=== PATIENT | female | born 1995 | race Caucasian/White ===

== ENCOUNTER 2019-01-04 01:31 | Emergency (ER) | payer OTHER ==
--- NOTE | 2019-01-04 02:07 | PDOC ---
History of Present Illness - General Stated Complaint: ABD/BACK PAIN Time Seen by Provider: 01/04/19 02:06 - History of Present Illness Initial Comments: 01/04/19 02:29 Ms. Hurt is a 23 yo female w/ pmh of IBS and depression who presents for evaluation of 2-3 day history of antony back pain that radiates to her abdomen. Patient reports it has been intermittent and similar to an episode 5 years ago when she was initially diagnosed with her IBS. The patient denies chest pain, shortness of breath, headache and dizziness. Denies fever, chills, nausea, vomit, diarrhea and constipation. Denies dysuria, frequency, urgency and hematuria. Past History - Past Medical History Allergies/Adverse Reactions: Allergies Allergy/AdvReac Type Severity Reaction Status Date / Time No Known Allergies Allergy Verified 01/04/19 02:15 Home Medications: Ambulatory Orders Ibuprofen [Motrin -] 400 mg PO QID PRN 12/07/13 Naproxen [Naprosyn -] 500 mg PO BID PRN #10 tablet 12/08/13 Nitrofurantoin Macrocrystal [Nitrofurantoin] 100 mg PO BID #5 capsule 12/08/13 HTN: Yes Psychiatric Problems: Yes (ANXIETY) - Surgical History Appendectomy: Yes - Immunization History Immunization Up to Date: Yes - Suicide/Smoking/Psychosocial Hx Smoking History: Never smoked Have you smoked in the past 12 months: No Hx Alcohol Use: No Review of Systems - Review of Systems Comments:: 01/04/19 02:33 GENERAL/CONSTITUTIONAL: No fever or chills. No weakness. HEAD, EYES, EARS, NOSE AND THROAT: No change in vision. No ear pain or discharge. No sore throat. CARDIOVASCULAR: No chest pain or shortness of breath RESPIRATORY: No cough, wheezing, or hemoptysis. GASTROINTESTINAL: +Abdominal / back pain as described. No nausea, vomiting, diarrhea or constipation. GENITOURINARY: No dysuria, frequency, or change in urination. MUSCULOSKELETAL: No joint or muscle swelling or pain. No neck pain. SKIN: No rash NEUROLOGIC: No headache, vertigo, loss of consciousness, or change in strength/ sensation. ENDOCRINE: No increased thirst. No abnormal weight change HEMATOLOGIC/LYMPHATIC: No anemia, easy bleeding, or history of blood clots. ALLERGIC/IMMUNOLOGIC: No hives or skin allergy. *Physical Exam - Physical Exam Comments: 01/04/19 02:34 GENERAL: Awake, alert, and fully oriented, in no acute distress HEAD: No signs of trauma, normocephalic, atraumatic EYES: PERRLA, EOMI, sclera anicteric, conjunctiva clear ENT: Auricles normal inspection, hearing grossly normal, nares patent, oropharynx clear without exudates. Moist mucosa NECK: Normal ROM, supple, no lymphadenopathy, JVD, or masses LUNGS: No distress, speaks full sentences, clear to auscultation bilaterally HEART: Regular rate and rhythm, normal S1 and S2, no murmurs, rubs or gallops, peripheral pulses normal and equal bilaterally. ABDOMEN: +Non-specific mild abdominal TTP. Soft, normoactive bowel sounds. No guarding, no rebound. No masses EXTREMITIES: Normal inspection, Normal range of motion, no edema. No clubbing or cyanosis. NEUROLOGICAL: Cranial nerves II through XII grossly intact. Normal speech, normal gait, no focal sensorimotor deficits SKIN: Warm, Dry, normal turgor, no rashes or lesions noted. ED Treatment Course - LABORATORY CBC & Chemistry Diagram: 01/04/19 02:30 01/04/19 02:24 Medical Decision Making - Medical Decision Making 01/04/19 05:54 Ms. Hurt is a 23 yo female w/ pmh as described who presents for evaluation of non-specific abdominal/back pain. Patient evaluated with labs as below for r/ o UTI, infection, or other urological process. Bedside US also performed which revealed normal kidneys, bladder, and gall bladder w/out stones. Patient reports she has had appendix out on repeat examination as well. 01/04/19 06:34 Labs grossly wnl as below. Patient treated symptomatically w/ pepcid, maalox, and viscous lidocaine. No concern for acute process at this time. Discharging to home. Laboratory Results - last 24 hr 01/04/19 01/04/19 01/04/19 02:24 02:30 02:34 WBC 10.1 H RBC 4.66 Hgb 13.8 Hct 41.0 MCV 88.1 MCH 29.6 MCHC 33.6 RDW 15.0 Plt Count 256 MPV 9.2 Absolute Neuts (auto) 7.4 Neutrophils % 74.0 Lymphocytes % 18.6 Monocytes % 6.5 Eosinophils % 0.3 Basophils % 0.6 Nucleated RBC % 0 Sodium 139 Potassium 4.2 Chloride 104 Carbon Dioxide 26 Anion Gap 9 BUN 16 Creatinine 0.8 Creat Clearance w eGFR 87.40 Random Glucose 88 Calcium 8.6 Total Bilirubin 0.4 AST 18 ALT 17 Alkaline Phosphatase 61 Total Protein 8.1 Albumin 4.5 Lipase 165 Urine Color Yellow Urine Appearance Clear Urine pH 5.0 Ur Specific Atkinson 1.011 Urine Protein Negative Urine Glucose (UA) Negative Urine Ketones Negative Urine Blood Trace Urine Nitrite Negative Urine Bilirubin Negative Urine Urobilinogen 0.2 Ur Leukocyte Esterase Trace Urine WBC (Auto) 2 Urine RBC (Auto) 3 Urine Casts (Auto) 1 U Epithel Cells (Auto) 3.0 Urine Bacteria (Auto) 57.9 Urine HCG, Qual Negative 01/04/19 05:51 WBC RBC Hgb Hct MCV MCH MCHC RDW Plt Count MPV Absolute Neuts (auto) Neutrophils % Lymphocytes % Monocytes % Eosinophils % Basophils % Nucleated RBC % Sodium Potassium Chloride Carbon Dioxide Anion Gap BUN Creatinine Creat Clearance w eGFR Random Glucose Calcium Total Bilirubin AST ALT Alkaline Phosphatase Total Protein Albumin Lipase Cancelled Urine Color Urine Appearance Urine pH Ur Specific Atkinson Urine Protein Urine Glucose (UA) Urine Ketones Urine Blood Urine Nitrite Urine Bilirubin Urine Urobilinogen Ur Leukocyte Esterase Urine WBC (Auto) Urine RBC (Auto) Urine Casts (Auto) U Epithel Cells (Auto) Urine Bacteria (Auto) Urine HCG, Qual *DC/Admit/Observation/Transfer Diagnosis at time of Disposition: Abdominal pain Qualifiers: Abdominal location: unspecified location Qualified Code(s): R10.9 - Unspecified abdominal pain - Discharge Dispostion Disposition: HOME Condition at time of disposition: Fair - Referrals Referrals: Rowdy Aquino MD [Staff Physician] - - Patient Instructions Printed Discharge Instructions: DI for Abdominal Pain-Adult Additional Instructions: You were evaluated today in the ER for your abdominal pain. We performed evaluation of blood and urine labs as well as examined you with ultrasound. No emergent process was identified at this time and you should follow-up with your orthopedics pediatric physician later this week for further evaluation. You may take over the counter tylenol per package instructions for pain control. Return to ER if any fever, chills, increase in pain, or other concerning symptoms. - Post Discharge Activity
[2019-01-04 02:15] VITALS: TEMP 97.9; BMI 21.7
[2019-01-04 02:40] LABS: BASO % 0.6 % (0-2.0); EOS % 0.3 % (0-4.5); HEMOGLOBIN 13.8 GM/dL (10.7-15.3); LYMPH % 18.6 % (8-40); MCH 29.6 pg (25.7-33.7); MCHC 33.6 g/dl (32.0-36.0); MEAN CELL VOLUME 88.1 fl (80-96); MEAN PLT VOLUME 9.2 fl (7.5-11.1); MONO % 6.5 % (3.8-10.2); PLATELET COUNT 256 K/MM3 (134-434); RBC 4.66 M/mm3 (3.60-5.2); WHITE BLOOD COUNT 10.1 K/mm3 (4.0-10.0)
[2019-01-04 02:47] LABS: HCG,QUALITATIVE URINE Negative
[2019-01-04 03:13] LABS: ALBUMIN 4.5 g/dl (3.4-5.0); ALK PHOS 61 U/L (45-117); ANION GAP 9 MMOL/L (8-16); BILIRUBIN,TOTAL 0.4 mg/dL (0.2-1); BLOOD UREA NITROGEN 16 mg/dL (7-18); CALCIUM 8.6 mg/dL (8.5-10.1); CHLORIDE 104 mmol/L (98-107); CO2 26 mmol/L (21-32); CREATININE 0.8 mg/dL (0.55-1.3); GLUCOSE,RANDOM 88 mg/dL (74-106); POTASSIUM 4.2 mmol/L (3.5-5.1); SGOT/AST 18 U/L (15-37); SGPT/ALT 17 U/L (13-61); SODIUM 139 mmol/L (136-145); TOT PROT 8.1 g/dl (6.4-8.2)
[2019-01-04 03:45] LABS: URINE APPEARANCE CLEAR; URINE BACTERIA 57.9 /hpf (NEGATIVE); URINE BILIRUBIN NEGATIVE (NEGATIVE); URINE CASTS 1 /hpf (0-8); URINE COLOR YELLOW; URINE GLUCOSE (UA) NEGATIVE (NEGATIVE); URINE KETONE NEGATIVE (NEGATIVE); URINE LEUK ESTERASE TRACE (NEGATIVE); URINE NITRITE NEGATIVE (NEGATIVE); URINE PROTEIN NEGATIVE (NEGATIVE); URINE RBC 3 /hpf (0-4); URINE UROBILINOGEN 0.2 mg/dL (0.2-1.0); URINE WBC 2 /hpf (0-5)
[2019-01-04] MEDS ORDERED: MAG HYDROX/AL HYDROX/SIMETH 30 ML UNIT-DOSE CUP PO ONE (05:24)
[2019-01-04] MEDS ORDERED: LIDOCAINE VISCOUS 2% ORAL/TOP 20 ML UNIT-DOSE CUP MM ONE (05:24)
[2019-01-04] MEDS ORDERED: FAMOTIDINE 20 MG/50 ML IVPB 20 MG/50 ML MG IVPB ONE ×2 (05:24→05:36)
[2019-01-04] MEDS ORDERED: MAG HYDROX/AL HYDROX/SIMETH 30 ML UNIT-DOSE CUP ONE (05:36)
[2019-01-04] MEDS ORDERED: LIDOCAINE VISCOUS 2% ORAL/TOP 20 ML UNIT-DOSE CUP ONE (05:36)
--- NOTE | 2019-01-04 05:38 | PDOC ---
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 pt states she can feel peristalsis in her stomach, h/o irritable bowel. has seen gi dr hsieh in the past many years ago. no n/v. normally 2 - 3 bm / day. no f/c no urinary complaints. no h/o ovarian cyst. no lower abd pain. describes bilat flank pain radiating to front. does have h/o inflammatory bowel disease in her family, but pt denies diarrhea or bloody bm. - Physicial Exam PE: 01/04/19 05:35 awake alert lungs clear bilaterally heart rrr no mrg abd soft mild periumbilical ttp. no rebound no guarding. mild epigastric ttp. skin warm and dry. no cva tenderness. - Medical Decision Making 01/04/19 05:36 pt ho prior appendectomy with vague abd / flank pain. mild periumbilical tenderness. no guarding. differental renal colic, uti, no lower abd tenderness to suggest ovarian pathology. no diarrhea to suggest colitis. cholelithiasis gastritis pud, irritable bowel. plan ua ucg lipase cbc cmp . focused ED ultrasound renal bilateral kidneys scanned. no hydroneprhosis. bladder nondistended. impression: normal renal ultrasound. focused ED US RUQ. gallbladder scanned in two planes. no wall thickening no wall edema. no cbd dilation, no stones. no pericholecystic fluid, no sonographic mcknight's. impression: normal gallbladder. d/w pt risk and benefit of ct a/p. relatively nontendern exam. normal renal and gb us. labs unremarkable. plan gi cocktail, recommend fu with ouptt GI dr Ibarra.
[2019-01-04 06:30] LABS: LIPASE 165 U/L (73-393)
[2019-01-04 06:45] VITALS: BP 103/61; PULSE 71
== END 2019-01-04 06:45 | disposition home or self-care (01) ==
LOC: JER 01:31
PROC: 3E033GC Introduction of Other Therapeutic Substance into Peripheral Vein, Percutaneous Approach (ICD-10-PCS; principal; 2019-01-04)
DX: R10.9 Unspecified abdominal pain (principal); K58.9 Irritable bowel syndrome, unspecified; F32.9 Major depressive disorder, single episode, unspecified; I10 Essential (primary) hypertension; F41.9 Anxiety disorder, unspecified
CPT/HCPCS: 36415; 80053; 81003; 83690; 84703; 85025; 87086; 99283-25

== ENCOUNTER 2019-01-09 22:53 | Emergency (ER) | payer OTHER ==
[2019-01-09 22:59] VITALS: BMI 22.1
[2019-01-09] MEDS ORDERED: ACETAMINOPHEN 325 MG TABLET (FP) PO ONE (23:40)
[2019-01-09] MEDS ORDERED: KETOROLAC TROMETHAMINE 15 MG/ML VIAL IVPUSH ONE (23:40)
[2019-01-09] MEDS ORDERED: ACETAMINOPHEN 325 MG TABLET (FP) ONE (23:46)
[2019-01-09] MEDS ORDERED: KETOROLAC TROMETHAMINE 15 MG/ML VIAL ONE (23:46)
--- NOTE | 2019-01-10 00:15 | PDOC ---
Documentation entered by Kiana Mccullough SCRIBE, acting as scribe for Gifty Breen MD. History of Present Illness - General Chief Complaint: Pain Stated Complaint: LOWER BACK PAIN Time Seen by Provider: 01/09/19 23:18 History Source: Patient Exam Limitations: No Limitations - History of Present Illness Initial Comments: 01/10/19 00:08 HPI: 23YOF with significant past medical history of IBS, anxiety, and depression presenting with 1 week of constant, 8/10, blt lower back pain radiating to her anterior abdomen and rectum. She notes her symptoms onset after a pathophysiology [place] the train. Patient endorses increased anxiety attacks secondary to her symptoms and the unknown of what it could be due to her new knowledge. While in the ED, patient requests a CT scan to help treat her anxiety. denies trauma or exertional activity. she uses clonazepam as needed per her psychiatrist, who she has upcoming appt with; she used her clonazepam last week with some relief. she denies using any otc analgesics for pain control. LMP 2 weeks ago, usually regular. no sexually activity, no VB or abnormal discharge. she was seen in the ED on 01/04/19 for similar sx, had normal blood work and bedside ultrasound imaging neg for renal or biliary pathology. she was referred to see GI As outpatient, but has yet to see or make appt. Denies any worsening or alleviating factors. Denies fever, chills, chest pain, SOB, palpitation, dizziness, weakness, N, V, D, abdominal pain, bladder and bowel problems, leg swelling, No sick contacts or travel. No new changes in medications. Allergies: None Past Medical History: IBS, anxiety, depression. Social history: goes to school, premed. No tobacco, ETOH or drug use. Surgical history: Appendectomy. Adenoidectomy. Meds: as documented in EMR PMD: None. ROS: GENERAL/CONSTITUTIONAL: No fever or chills. No weakness. no sweats. HEAD, EYES, EARS, NOSE AND THROAT: No change in vision or hearing. No ear pain or discharge. No sore throat or mouth pain. No difficulty swallowing. No congestion. CARDIOVASCULAR: No chest pain or palpitations, syncope or edema. RESPIRATORY: No SOB, cough GASTROINTESTINAL No nausea/vomiting. No diarrhea or constipation. +abdominal pain GENITOURINARY: +Abdominal pain. No hematuria, dysuria, frequency, urgency or other changes. MUSCULOSKELETAL: No joint or muscle swelling or pain. No decreased range of motion. +Back pain. No neck pain. SKIN: No rash or changes in skin color or lesions. No wounds. NEUROLOGIC: alert and oriented appropriately No headache, dizziness, loss of consciousness, or change in strength/sensation. HEMATOLOGIC/LYMPHATIC: No anemia, easy bruising/bleeding, or history of blood clots. No swollen lymph nodes ALLERGIC/IMMUNOLOGIC: No allergies PSYCH: +Anxiety. All other systems reviewed and negative, or as documented in HPI. Physical Exam: General: +Mildly anxious. Well appearing, awake and alert, NAD. HEENT: NCAT, PERRL, EOMI, clear conjunctiva, anicteric, moist mucus membranes, clear oropharynx, no oral lesions.. Neck: neck supple, FROM Resp: CTAB, normal and even respirations, no respiratory distress CVS: RRR, no murmurs, 2+ peripheral pulses throughout, no peripheral edema Abdomen: soft, NTND, no rebound or guarding. No CVAT. Back: nontender, normal inspection and ROM MSK: no edema, PADILLA x4, ROM intact. No clubbing or cyanosis. normal bulk and tone. Neuro: alert Skin: warm and well perfused, cap refill <2 sec, normal color Psych: mildly anxious, no tremors. 01/10/19 00:16 Past History - Past Medical History Allergies/Adverse Reactions: Allergies Allergy/AdvReac Type Severity Reaction Status Date / Time No Known Allergies Allergy Verified 01/09/19 23:00 Home Medications: Ambulatory Orders Ibuprofen [Motrin -] 400 mg PO QID PRN 12/07/13 Naproxen [Naprosyn -] 500 mg PO BID PRN #10 tablet 12/08/13 Nitrofurantoin Macrocrystal [Nitrofurantoin] 100 mg PO BID #5 capsule 12/08/13 Cephalexin Monohydrate [Keflex -] 500 mg PO BID #14 capsule 01/10/19 COPD: No HTN: Yes Psychiatric Problems: Yes (ANXIETY) - Surgical History Appendectomy: Yes - Immunization History Immunization Up to Date: Yes - Suicide/Smoking/Psychosocial Hx Smoking History: Never smoked Have you smoked in the past 12 months: No Hx Alcohol Use: No Drug/Substance Use Hx: No *Physical Exam - Vital Signs Last Vital Signs Temp Pulse Resp BP Pulse Ox 97.4 F L 94 H 18 158/109 H 98 01/09/19 22:57 01/09/19 22:57 01/09/19 22:57 01/09/19 22:57 01/09/19 22:57 ED Treatment Course - LABORATORY CBC & Chemistry Diagram: 01/10/19 00:24 01/10/19 00:24 - RADIOLOGY Radiology Studies Ordered: Category Date Time Status ABDOMEN US -LIMITED [US] Stat Ultrasound 01/09/19 23:39 Ordered PELVIC / BLADDER US [US] Stat Ultrasound 01/09/19 23:40 Ordered Radiograph Interpretation: 01/10/19 01:11 EXAM: PELVIC / BLADDER US and pelvic duplex HISTORY: Pelvic pain COMPARISON: None. FINDINGS: Pelvic ultrasound:Uterus is anteverted and measures 7.3centimeters in length. The endometrium is 7millimeters in thickness which is normal. There are no fibroids. The right ovary measures 3.6centimeters in length, appears normal and demonstrates normal flow. Left ovary is not visualized. There is no significant free fluid. Bladder is collapsed. Pelvic duplex: There is normal arterial and venous flow in the right ovary. IMPRESSION: No evidence of pathology, although the left ovary is not visualized. EXAM: Ultrasound abdomen complete and limited abdominal duplex HISTORY: Evaluate for biliary or renal stone COMPARISON: None. FINDINGS: Ultrasound abdomen: The liver is normal, without mass or intrahepatic biliary duct dilation. The gallbladder contains a polyp and sludge without secondary findings of cholecystitis. The CBD is nondilated and measures 3millimeters in diameter. The right kidney measures 9.3centimeters in diameter. The left kidney measures 9.7centimeters in diameter. There are no renal stones or hydronephrosis. Pancreas is partially obscured by bowel gas, but grossly unremarkable. The spleen measures 10.4 centimeters in length and is unremarkable. Aorta and IVC appear normal. Abdominal duplex: The main portal vein demonstrates normal hepatopedal flow. IMPRESSION: Gallbladder polyp and sludge without secondary findings of cholecystitis. Read by: Trent Brandon MD - Medications Given in the ED: ED Medications Discontinued Medications Generic Name Dose Route Start Last Admin Trade Name Freq PRN Reason Stop Dose Admin Acetaminophen 650 mg 01/09/19 23:40 01/09/19 23:55 Tylenol - PO 01/09/19 23:41 650 mg ONCE ONE Administration Ketorolac Tromethamine 15 mg 01/09/19 23:40 01/09/19 23:54 Toradol Injection - IVPUSH 01/09/19 23:41 15 mg ONCE ONE Administration Medical Decision Making - Medical Decision Making 01/09/19 23:59 I, Gifty Breen MD, attest that this document has been prepared under my direction and personally reviewed by me in its entirety. I further attest, that it accurately reflects all work, treatment, procedures and medical decision -making performed by me. See HPI for details Vital signs reviewed, wnl. mildly hypertensive, but also anxious. no fever or systemic sx DDx abdominal pain: Renal colic, biliary colic, metabolic/electrolyte derangements. GERD, PUD, esophageal spasm, pancreatitis, hepatitis, constipation , colitis, gastroenteritis, UTI, pyelonephritis, hernia, ovarian cyst, Mittelschmerz; lumbar strain, msk strain. - s/p appendectomy. no palp hernia. abdomen benign. Prior notes reviewed, including admissions, discharges and consultations. recent ED visit on 01/04/19 for similar sx, neg workup and labs, neg bedside ultrasound imaging, no stones or biliary pathology, no hydro to suggest stone/ renal pathology. laboratory results and imaging reviewed, basic labs and lytes wnl, notable for_ . UA_with some leuk esterase, WBC 11, correlating with symptomatic UTI (lower abdominal/back pain). no s/s suggestive of acute pyelo. preg test neg ED course - pt is anxious, has 1 week of sx, doubt intra abdominal pathology - also no significant abdominal or pelvic pain, no peritoneal or focal tenderness. pt requesting CT a/p, stating she is anxious and wants a good test. discussed indications, risks and benefits including radiation and malignancy and nephrotox risk, pt is amenable to ultrasound and labs to start, analgesia and reassess. - Abdomen/pelvic US: biliary sludge and polyp, no cholecystitis. no hydro, normal renal morphology. no acute pelvic pathology, no FF. normal uterus, no structural abnormalities. - UA with s/s uncomplicated UTI, treat with keflex x 7 days, f/u urine culture. - on reeval, VS normalized. after analgesia, sx improved. abdomen benign. provided and discussed imaging and lab results. f/u primary, GI and psych. Dispo: Pt informed of my clinical impression, treatment recommendations and disposition plan. All questions answered to patient's satisfaction and expressed understanding and comfort with this. Reasons for returning to the ED sooner discussed including new or persistent/worsening symptoms with the patient otherwise, follow up with primary care physician. At the time of discharge, the patient is alert, clinically improved, tolerating po and verbalizes understanding of instructions, satisfied with the care received and felt comfortable with the plan. Patient does not suffer from an acute life- threatening medical condition at this time she is safe for outpatient follow- up. 01/10/19 01:10 01/10/19 01:11 01/10/19 01:15 01/10/19 01:42 *DC/Admit/Observation/Transfer Diagnosis at time of Disposition: Back pain Qualifiers: Back pain location: low back pain Back pain laterality: unspecified Sciatica presence: without sciatica Abdominal pain Qualifiers: Abdominal location: lower abdomen, unspecified Qualified Code(s): R10.30 - Lower abdominal pain, unspecified Urinary tract infection Qualifiers: Urinary tract infection type: acute cystitis Hematuria presence: with hematuria Qualified Code(s): N30.01 - Acute cystitis with hematuria - Discharge Dispostion Disposition: HOME Condition at time of disposition: Improved Decision to Admit order: No - Prescriptions Prescriptions: Cephalexin Monohydrate [Keflex -] 500 mg PO BID #14 capsule - Referrals Referrals: Rowdy Aquino MD [Staff Physician] - [facility] [Provider Group] [facility] [Provider Group] - Patient Instructions Printed Discharge Instructions: DI for Low Back Pain, DI for Abdominal Pain- Adult Additional Instructions: 1) Please follow-up with your primary care doctor in the next 1-2 days. Please call tomorrow for for any urgent issues. 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 reduce stressors and take pain medications as needed for your pain, as well as clonazepam as needed for anxiety 2) You were given a copy of the tests performed today. Please bring the results with you and review them with your primary care doctor. Your laboratory / imaging results were normal, including your ultrasounds. - you have some sludge and incidental gallbladder polyp, no evidence of infection or obstruction. - pelvic ultrasound also unremarkable, no cyst or structural abnormalities. 3) If you have any worsening of symptoms or any other concerns please return to the ED immediately. Return if worsening symptoms including fevers, headache, vomiting, visual or hearing disturbances, abdominal pain, chest pain, shortness of breath, syncope, dehydration, inability to take things by mouth/vomiting, altered mental status, or worsening concerning symptoms. 4) Please continue taking your home medications as directed. you are to take keflex twice a day x 1 week for your urinary tract infection, follow up on your urine cultures. this is an antibiotic to treat the urinary tract infection. side effects may include upset stomach, abdominal pain, vomiting, or diarrhea. do not drink alcohol with your medications. Please take IBUPROFEN (aka MOTRIN, ADVIL, ALEVE) 400 mg and/or ACETAMINOPHEN ( aka Tylenol) 650-975 mg every 6 hours, as needed, for pain. Please do not take these medications if you have a bleeding disorder, stomach or GI ulcer problems or liver disease. Stay well hydrated and rest adequately. an appointment. If you cannot follow-up with your primary care doctor please return to the ED - Post Discharge Activity Gifty Breen MD: This documentation has been prepared by the Sadia hernández Nirvannie, SCRIBE, under my direction and personally reviewed by me in its entirety. I confirm that the documentation accurately reflects all work, treatment, procedures, and medical decision making performed by me.
[2019-01-10 00:37] LABS: BASO % 0.7 % (0-2.0); EOS % 0.3 % (0-4.5); HEMATOCRIT 40.6 % (32.4-45.2); HEMOGLOBIN 13.5 GM/dL (10.7-15.3); LYMPH % 16.6 % (8-40); MCH 29.7 pg (25.7-33.7); MCHC 33.4 g/dl (32.0-36.0); MEAN PLT VOLUME 9.4 fl (7.5-11.1); MONO % 6.1 % (3.8-10.2); NEUT % 76.3 % (42.8-82.8); PLATELET COUNT 276 K/MM3 (134-434); RBC 4.56 M/mm3 (3.60-5.2); WHITE BLOOD COUNT 9.6 K/mm3 (4.0-10.0)
[2019-01-10 01:03] LABS: ALBUMIN 4.6 g/dl (3.4-5.0); ALK PHOS 56 U/L (45-117); ANION GAP 9 MMOL/L (8-16); BILIRUBIN,TOTAL 0.6 mg/dL (0.2-1); BLOOD UREA NITROGEN 12 mg/dL (7-18); CALCIUM 9.8 mg/dL (8.5-10.1); CHLORIDE 100 mmol/L (98-107); CO2 28 mmol/L (21-32); CREATININE 0.7 mg/dL (0.55-1.3); GLUCOSE,RANDOM 102 mg/dL (74-106); LIPASE 124 U/L (73-393); POTASSIUM 3.8 mmol/L (3.5-5.1); SGOT/AST 16 U/L (15-37); SGPT/ALT 19 U/L (13-61); SODIUM 137 mmol/L (136-145); TOT PROT 8.1 g/dl (6.4-8.2)
[2019-01-10 01:25] LABS: EPI CELLS 6.4 /HPF (0-5/HPF); PH,URINE 5.5 (5.0-8.0); URINE APPEARANCE CLEAR; URINE BACTERIA 124.5 /hpf (NEGATIVE); URINE BILIRUBIN NEGATIVE (NEGATIVE); URINE CASTS 3 /lpf (0-8); URINE COLOR YELLOW; URINE GLUCOSE (UA) NEGATIVE (NEGATIVE); URINE KETONE TRACE (NEGATIVE); URINE LEUK ESTERASE 1+ (NEGATIVE); URINE NITRITE NEGATIVE (NEGATIVE); URINE PROTEIN NEGATIVE (NEGATIVE); URINE RBC 5 /hpf (0-4); URINE UROBILINOGEN 0.2 mg/dL (0.2-1.0); URINE WBC 11 /hpf (0-5)
[2019-01-10] MEDS ORDERED: CEPHALEXIN MONOHYDRATE 500 MG CAPSULE (UD) PO ONE (01:42)
[2019-01-10] MEDS ORDERED: CEPHALEXIN MONOHYDRATE 500 MG CAPSULE (UD) ONE (01:48)
[2019-01-10 03:10] LABS: HCG,QUALITATIVE URINE NEGATIVE
[2019-01-10 07:25] VITALS: BP 120/75; PULSE 70; TEMP 98.2
== END 2019-01-10 02:11 | disposition home or self-care (01) ==
LOC: JER 22:53
PROC: 3E0333Z Introduction of Anti-inflammatory into Peripheral Vein, Percutaneous Approach (ICD-10-PCS; principal; 2019-01-09)
DX: I10 Essential (primary) hypertension (principal); F41.8 Other specified anxiety disorders; F32.9 Major depressive disorder, single episode, unspecified
CPT/HCPCS: 36415; 76700-TC; 76856-TC; 80053; 81003; 83690; 84703; 85025; 87086; 96374; 99282-25

== ENCOUNTER 2024-01-23 17:20 | Emergency (ER) | payer OTHER ==
[2024-01-23 17:31] VITALS: BP 126/76; PULSE 73; RESP 18; TEMP 98; BMI 28.4
[2024-01-23 18:41] LABS: BASO % 0.9 % (0-2.0); EOS % 1.1 % (0-4.5); HEMATOCRIT 41.9 % (32.4-45.2); HEMOGLOBIN 13.7 GM/dL (10.7-15.3); LYMPH % 29.2 % (8-40); MCH 28.8 pg (25.7-33.7); MCHC 32.7 g/dl (32.0-36.0); MEAN CELL VOLUME 88.3 fl (80-96); MONO % 6.3 % (3.8-10.2); NEUT % 62.5 % (42.8-82.8); PLATELET COUNT 328 10^3/uL (134-434); RBC 4.75 M/mm3 (3.60-5.2); RDW 14.3 % (11.6-15.6); WHITE BLOOD COUNT 7.9 K/mm3 (4.0-10.0)
[2024-01-23 18:45] LABS: EPI CELLS 21 /uL (0-25.1); HYALINE CASTS 0 /uL (0-3.1); PH,URINE 5.5 (5.0-8.0); URINE APPEARANCE CLEAR; URINE BACTERIA 78 /uL (0-1359); URINE BILIRUBIN NEGATIVE (NEGATIVE); URINE COLOR YELLOW; URINE GLUCOSE (UA) NEGATIVE (NEGATIVE); URINE KETONE TRACE (NEGATIVE); URINE LEUK ESTERASE NEGATIVE (NEGATIVE); URINE NITRITE NEGATIVE (NEGATIVE); URINE PROTEIN NEGATIVE (NEGATIVE); URINE RBC 95 /uL (0-23.9); URINE UROBILINOGEN 0.2 mg/dL (0.2-1.0); URINE WBC 9 /uL (0-25.8)
[2024-01-23 18:56] LABS: POTASSIUM 4.9 mmol/L (3.5-5.1)
[2024-01-23 19:01] LABS: CREATININE 0.6 mg/dL (0.55-1.3)
== END 2024-01-23 21:44 | disposition home or self-care (01) ==
LOC: JER 17:20
DX: N93.9 Abnormal uterine and vaginal bleeding, unspecified (principal)
CPT/HCPCS: 36415; 76830-TC; 80048; 81003; 84703; 85025; 87086; 99284-25